=== PATIENT | male | born 1945 | race Caucasian/White ===

== ENCOUNTER 2019-04-07 05:06 | Emergency (ER) | payer MEDICARE, OTHER, MEDICAID ==
[~2019-04-07] VITALS: Ht 172.7 cm; Wt 74.8 kg
[2019-04-07 06:22] VITALS: BP 174/105
[2019-04-07] MEDS ORDERED: CLINDAMYCIN 900 MG/6 ML VIAL IM ONE (06:30)
[2019-04-07] MEDS ORDERED: KETOROLAC TROMETHAMINE INJ 60 MG/2 ML VIAL IM ONE (06:30)
[2019-04-07] MEDS ORDERED: CLINDAMYCIN 900 MG/6 ML VIAL ONE (06:36)
[2019-04-07] MEDS ORDERED: KETOROLAC TROMETHAMINE INJ 30 MG/ML VIAL ONE (06:37)
== END 2019-04-07 07:10 | disposition home or self-care (01) ==
LOC: ER 05:18
DX: L03.116 Cellulitis of left lower limb (principal); I10 Essential (primary) hypertension
CPT/HCPCS: 96372 ×2; 99283; J1885; J3490